=== PATIENT | female | born 1980 | race Caucasian/White ===

== ENCOUNTER 2024-04-05 07:37 | Emergency (ER) | payer OTHER ==
[~2024-04-05] VITALS: Ht 175.3 cm; Wt 90.7 kg
[2024-04-05 07:46] VITALS: BP_SYST 138; PULSE 91; RESP 15; TEMP 97.1; O2SAT 99
[2024-04-05] MEDS: ASPIRIN 81 MG TAB.CHEW PO ONE (08:21)
[2024-04-05] MEDS: NACL 0.9% 1,000 ML IV ONE (08:37)
[2024-04-05 08:47] LABS: BASOPHILS % (AUTO) 0.7 % (0.0-2.0); EOSINOPHILS # (AUTO) 0.1 K/uL (0.0-0.4); EOSINOPHILS % (AUTO) 1.4 % (0.0-4.0); HEMOGLOBIN 13.3 g/dL (12.0-16.0); LYMPHOCYTES # (AUTO) 1.6 K/uL (1.0-5.5); LYMPHOCYTES % (AUTO) 25.9 % (20.5-51.5); MEAN CORPUSCULAR HEMOGLOBIN 30 pg (27-31); MEAN CORPUSCULAR HGB CONC 33 % (32-36); MEAN CORPUSCULAR VOLUME 90 fL (79.0-98.0); MONOCYTES # (AUTO) 0.4 K/uL (0.0-1.0); MONOCYTES % (AUTO) 6.5 % (1.7-9.3); NEUTROPHILS % (AUTO) 65.5 % (40.0-70.0); PLATELET COUNT (AUTO) 272 K/uL (130-430); RED BLOOD CELL COUNT(AUTO) 4.46 MIL/uL (4.2-6.2); WHITE BLOOD COUNT (AUTO) 6.2 K/uL (4.8-10.8)
[2024-04-05 09:08] LABS: ANION GAP 12 (5-15); CALCIUM 10.7 mg/dL (8.4-11.0); CARBON DIOXIDE 22 mmol/L (23-29); CHLORIDE 106 mmol/L (98-107); CREATININE 1.28 mg/dL (0.55-1.30); GFR AFRICAN AMERICAN 59 mL/min (>90); GLUCOSE 163 mg/dL (74-106); POTASSIUM 3.7 mmol/L (3.5-5.1); SODIUM SERUM 140 mmol/L (136-145); UREA NITROGEN, BLOOD 15 mg/dL (8-21)
[2024-04-05 09:09] LABS: GFR NON AFRICAN-AMERICAN 48 mL/min (>90)
[2024-04-05 11:36] VITALS: BP_SYST 128; PULSE 90; RESP 15; TEMP 97.1; O2SAT 99
== END 2024-04-05 11:34 | disposition home or self-care (01) ==
LOC: SED 07:37
DX: G90.A Postural orthostatic tachycardia syndrome [POTS] (principal); R42 Dizziness and giddiness; I10 Essential (primary) hypertension; Z79.899 Other long term (current) drug therapy
CPT/HCPCS: 99285; 96360; 71045; 80048; 83880; 85025; 85379; 84484; 36415; 93005; 81025; J7030